=== PATIENT | female | born 1975 | race Caucasian/White ===

== ENCOUNTER 2016-10-04 11:34 | Emergency (ER) | payer MEDICAID ==
--- NOTE | ~2016-10-04 | US134 ---
[facility] A Service of [facility] RADIOLOGY TEXT RESULTS PATIENT: EVAN PATEL LOCATION: SED : 73 UNIT #: [id number] AGE: [address]: Tariq Hamilton MD SEX: F ORDER DR: [id number] [place] [id number] E MR#: [id number] Acc #: [id number] NAME: EVAN PATEL : 1975 SEX: F STUDY DATE/TIME: 10/04/2016 12:40 UNIT: SED ROOM: STUDY DESCRIPTION: US Transvaginal Attending Physician: Tariq Hamilton M.D. Ordering Physician: Tariq Hamliton M.D. Primary Care Physician: Enma Morgan M.D. MEDICAL IMAGING REPORT This report is preliminary unless electronic signature is present. EXAM Pelvic ultrasound HISTORY Vaginal bleeding since September 18, 2016. Patient also reports she has had pelvic cramping. Last normal menstrual period was September 21, 2016. She is beta-HCG negative. TECHNIQUE Fields-scale, color Doppler and Doppler waveform analysis was performed transvaginally only. FINDINGS This examination is non-diagnostic due to overlying bowel gas. The uterus itself is poorly visualized and the endometrium was not measured. Only the left ovary is seen. It is grossly unremarkable. It does have normal color-Doppler flow. IMPRESSION Non-diagnostic examination due to overlying bowel gas. Uterus is incompletely evaluated and is seen only partially. Endometrium cannot be assessed on the basis of this study. In addition, the patient's right ovary cannot be seen. Left ovary appears grossly normal. Dictated by... Brandi Worley M.D. THIS IS AN ELECTRONICALLY VERIFIED REPORT Brandi Worley M.D. at 10/06/2016 4:20 PM AFF/pcl [facility] A Service of [facility] RADIOLOGY TEXT RESULTS PATIENT: EVAN PATEL LOCATION: SED : 73 UNIT #: [id number] AGE: [address]: Tariq Hamilton MD SEX: F ORDER DR: TD: 10/04/2016 20:39 JOB #: [id number] MEDICAL IMAGING REPORT Page 1 of 1
[~2016-10-04 11:34] MED LIST: FLEXERIL10 MG PO; NO MEDICATIONS; VOLTAREN50 MG PO
[2016-10-04] MEDS ORDERED: DEPO-PROVE150 MG/11 (11:40)
[2016-10-04 11:57] LABS: URINE SOURCE CLEAN CATCH
[2016-10-04 12:00] LABS: URINE APPEARANCE SL CLOUDY; URINE BILIRUBIN NEG (NEG); URINE BLOOD 3+ (NEG); URINE COLOR YELLOW; URINE GLUCOSE NEG (NORM); URINE KETONE TRACE (NEG); URINE LEUKOCYTE ESTERASE NEG (NEG); URINE NITRATE NEG (NEG); URINE PROTEIN 1+ (NEG); URINE UROBILINOGEN 0.2 MG/DL (NORM)
[2016-10-04 12:03] LABS: MICRO INDICATED? YES
[2016-10-04 12:08] LABS: BASOPHIL# 0.1 X10e3 (0-0.3); BASOPHIL% 0.8 % (0-2.5); DIFF IND NO; EOSINOPHIL# 0.1 X10e3 (0-0.7); EOSINOPHIL% 1.3 % (0.0-7.0); HEMATOCRIT 39.6 % (35.0-45.0); HEMOGLOBIN 13.1 gm/dL (12.0-16.0); LYMPHOCYTE# 1.7 X10e3 (1.0-3.5); LYMPHOCYTE% 23.6 % (17.0-45.0); MEAN CELL VOLUME 88.5 FL (83-96); MEAN CORPUSCULAR HEMOGLOBIN 29.3 PG (28-34); MEAN CORPUSCULAR HGB CONC 33.1 g/dL (30-36); MEAN PLATELET VOLUME 8.5 FL (6.5-11.5); MONOCYTE# 0.6 X10e3 (0-1.0); MONOCYTE% 8.7 % (3.0-12.0); NEUTROPHIL# 4.8 X10e3 (1.5-7.1); NEUTROPHIL% 65.6 % (40-75); PLATELET COUNT 283 X10e3 (140-420); RED BLOOD COUNT 4.48 X10e (3.90-5.30); RED CELL DISTRIBUTION WIDTH 13.8 % (11.0-15.5); WHITE BLOOD COUNT 7.3 X10e3 (4.0-10.5)
[2016-10-04 12:19] LABS: CULTURE INDICATED? YES; URINE BACTERIA 1+ (NEG); URINE SQUAMOUS EPITHELIAL CELL MANY /[HPF]
[2016-10-04 12:26] LABS: BUN/CREATININE RATIO 11.11; CALCIUM SERUM 8.8 mg/dL (8.4-10.2); CREATININE SERUM 0.9 mg/dL (0.6-1.4); GLOM FILT RATE Estimated 78.9 mL/min (>60); POTASSIUM 3.6 mmol/L (3.5-5.1)
== END 2016-10-04 14:42 | disposition home or self-care (01) ==
LOC: SED 11:34
PROVIDERS: Emergency Medicine
DX: N93.8 Other specified abnormal uterine and vaginal bleeding (principal); Z90.49 Acquired absence of other specified parts of digestive tract
CPT/HCPCS: 36415; 76830; 80048; 81003; 84703; 85025; 87086; 99284